=== PATIENT | female | born 1995 | race Caucasian/White ===

== ENCOUNTER 2018-01-09 22:57 | Emergency (ER) | payer BC ==
[~2018-01-09] VITALS: Ht 170.2 cm; Wt 79.5 kg
[2018-01-09 23:17] VITALS: TEMP 98
[2018-01-10 01:04] LABS: MUCOUS Present /lpf; PH 7 (5-8); URINE APPEARANCE Cloudy; URINE BACTERIA None Seen /hpf; URINE BILIRUBIN Negative (NEGATIVE); URINE BLOOD Negative (NEGATIVE); URINE COLOR Yellow; URINE GLUCOSE Negative (NEGATIVE); URINE KETONE Negative (NEGATIVE); URINE LEUKOCYTE ESTERASE 1+ (NEGATIVE); URINE NITRATE Negative (NEGATIVE); URINE PROTEIN(semi-quant) Negative (NEGATIVE); URINE UROBILINOGEN Negative (NEGATIVE)
[2018-01-10] MEDS ORDERED: CEPHALEXIN500 M1 PO (01:37)
[2018-01-10] MEDS ORDERED: ZOFRAN ODT4 MG PO (01:39)
[2018-01-10 01:56] VITALS: BP 118/78; PULSE 80
[2018-01-10 03:58] LABS: COLLECTION METHOD CLEAN CATCH
== END 2018-01-10 01:56 | disposition home or self-care (01) ==
LOC: COL.ER 22:57
PROVIDERS: Emergency Medicine
DX: N39.0 Urinary tract infection, site not specified (principal); R53.81 Other malaise; R53.83 Other fatigue
CPT/HCPCS: J1885

== ENCOUNTER 2018-08-18 23:24 | Emergency (ER) | payer BC ==
[~2018-08-18] VITALS: Ht 167.6 cm; Wt 79.5 kg
[~2018-08-18 23:24] MED LIST: CEPHALEXIN500 M1 PO; ZOFRAN ODT4 MG PO
[2018-08-18 23:32] VITALS: BP 115/94; TEMP 98.7
[2018-08-18 23:53] LABS: BASO % 0.5 % (0.0-2.0); EOS # 0.1 (0.0-0.7); EOS % 1.3 % (0-4.0); GRAN # 4.5 (1.4-6.5); GRAN % 58.3 % (42.2-75.2); HEMATOCRIT 40.6 % (37.0-47.0); HEMOGLOBIN 13.4 g/dl (12.5-16.0); LYMPH # 2.4 (1.2-3.4); MEAN CELL VOLUME 88 fl (80.0-100.0); MEAN CORPUSCULAR HEMOGLOBIN 29 pg (27.0-31.0); MEAN CORPUSCULAR HGB CONC 33 g/dl (33.0-37.0); MEAN PLATELET VOLUME 10.1 fl (7.4-10.4); MONO # 0.7 (0.1-0.6); MONO % 8.6 % (1.7-9.3); PLATELET COUNT 233 K/mm3 (130-400); RED BLOOD COUNT 4.62 M/mm3 (4.10-5.30); REDCELL DISTRIBUTION WIDTH-CV 12.5 % (11.5-14.5)
[2018-08-19 00:10] LABS: ALANINE AMINOTRANSFERASE 42 U/L (9-52); ALBUMIN 4.2 gm/dL (3.5-5.0); ALKALINE PHOSPHATASE 52 U/L (50-136); ANION GAP 10 mmol/L (7-16); AST,SGOT 26 U/L (15-37); BILIRUBIN,TOTAL 0.5 mg/dL (0.0-1.0); BLOOD UREA NITROGEN 6 mg/dL (7-17); CALCIUM 9.2 mg/dL (8.4-10.2); CARBON DIOXIDE 23 mmol/L (22-30); CHLORIDE 105 mmol/L (98-107); CREATININE, serum 0.59 (0.52-1.25); GLUCOSE 82 mg/dL (74-106); LIPASE 41 U/L (23-300); POTASSIUM 3.7 mmol/L (3.4-5.0); SODIUM 138 mmol/L (137-145); TOTAL PROTEIN 7.4 gm/dL (6.4-8.2)
[2018-08-19 00:11] LABS: C-REACTIVE PROTEIN < 0.5 mg/dL (0.0-0.9)
[2018-08-19 01:14] LABS: COLLECTION METHOD CLEAN CATCH
[2018-08-19 01:20] LABS: MUCOUS Present /lpf; PH 5 (5-8); URINE APPEARANCE Cloudy; URINE BACTERIA Rare /hpf; URINE BILIRUBIN Negative (NEGATIVE); URINE BLOOD 2+ (NEGATIVE); URINE COLOR Amber; URINE GLUCOSE Negative (NEGATIVE); URINE KETONE Trace (NEGATIVE); URINE LEUKOCYTE ESTERASE Trace (NEGATIVE); URINE NITRATE Negative (NEGATIVE); URINE PROTEIN(semi-quant) 1+ (NEGATIVE); URINE UROBILINOGEN Negative (NEGATIVE)
[2018-08-19] MEDS ORDERED: MACROBID 1100 MG/CAP PO (01:36)
[2018-08-19 01:47] VITALS: PULSE 61
== END 2018-08-19 01:47 | disposition home or self-care (01) ==
LOC: COL.ER 23:24
PROVIDERS: Physician Assistant
DX: N39.0 Urinary tract infection, site not specified (principal); Z33.1 Pregnant state, incidental
CPT/HCPCS: J1885

== ENCOUNTER 2018-09-11 17:41 | Emergency (ER) | payer BC ==
[~2018-09-11] VITALS: Ht 170.2 cm; Wt 81.8 kg
[~2018-09-11 17:41] MED LIST changes: +MACROBID 1100 MG/CAP PO
[2018-09-11 18:04] VITALS: TEMP 98.1
[2018-09-11] MEDS ORDERED: B 6 (18:07)
[2018-09-11] MEDS ORDERED: PRENATAL MVI (18:07)
[2018-09-11 19:09] LABS: COLLECTION METHOD CLEAN CATCH
[2018-09-11 19:12] LABS: BASO # 0.1 (0.0-0.2); BASO % 0.6 % (0.0-2.0); EOS % 0.3 % (0-4.0); GRAN # 6.9 (1.4-6.5); GRAN % 68.4 % (42.2-75.2); HEMOGLOBIN 14.5 g/dl (12.5-16.0); LYMPH # 2.3 (1.2-3.4); LYMPH % 22.8 % (20.0-51.0); MEAN CELL VOLUME 89 fl (80.0-100.0); MEAN CORPUSCULAR HEMOGLOBIN 29 pg (27.0-31.0); MEAN CORPUSCULAR HGB CONC 33 g/dl (33.0-37.0); MEAN PLATELET VOLUME 10.4 fl (7.4-10.4); MONO # 0.8 (0.1-0.6); MONO % 7.6 % (1.7-9.3); PLATELET COUNT 265 K/mm3 (130-400); RED BLOOD COUNT 4.97 M/mm3 (4.10-5.30)
[2018-09-11 19:30] LABS: MUCOUS Present /lpf; PH 5 (5-8); SQUAMOUS EPITHELIAL 0-2 /hpf; URINE APPEARANCE Cloudy; URINE BACTERIA None Seen /hpf; URINE BILIRUBIN Negative (NEGATIVE); URINE BLOOD 3+ (NEGATIVE); URINE COLOR Amber; URINE GLUCOSE Negative (NEGATIVE); URINE KETONE 2+ (NEGATIVE); URINE LEUKOCYTE ESTERASE Negative (NEGATIVE); URINE NITRATE Negative (NEGATIVE); URINE PROTEIN(semi-quant) 2+ (NEGATIVE); URINE RBC >50 /hpf; URINE UROBILINOGEN >=4.0 mg/dL (NEGATIVE)
[2018-09-11] MEDS ORDERED: PHENERGAN 25 TA25 MG PO (22:15)
[2018-09-11 22:28] VITALS: BP 115/77; PULSE 70
== END 2018-09-11 22:30 | disposition home or self-care (01) ==
LOC: COL.ER 17:41
PROVIDERS: Nurse Practitioner
DX: O46.001 Antepartum hemorrhage with coagulation defect, unspecified, first trimester (principal); O99.321 Drug use complicating pregnancy, first trimester; F12.90 Cannabis use, unspecified, uncomplicated; Z90.49 Acquired absence of other specified parts of digestive tract; Z3A.10 10 weeks gestation of pregnancy
CPT/HCPCS: J2550; J7030

== ENCOUNTER 2019-03-05 06:57 | Emergency (ER) | payer MEDICAID ==
[~2019-03-05] VITALS: Ht 170.2 cm; Wt 77.3 kg
[~2019-03-05 06:57] MED LIST changes: +B 6; +MOTRIN 800800 MG/TAB PO; +PHENERGAN 25 TA25 MG PO; +PRENATAL MVI; +TYLENOL 500MG500 MG PO
[2019-03-05 07:05] VITALS: TEMP 97.1
[2019-03-05 07:41] LABS: COLLECTION METHOD CLEAN CATCH
[2019-03-05 07:49] LABS: BASO # 0.1 (0.0-0.2); BASO % 0.5 % (0.0-2.0); EOS % 0.2 % (0-4.0); GRAN % 73.9 % (42.2-75.2); HEMATOCRIT 38.9 % (37.0-47.0); HEMOGLOBIN 12.6 g/dl (12.5-16.0); LYMPH # 2.1 (1.2-3.4); LYMPH % 19.5 % (20.0-51.0); MEAN CELL VOLUME 87 fl (80.0-100.0); MEAN CORPUSCULAR HEMOGLOBIN 28 pg (27.0-31.0); MEAN CORPUSCULAR HGB CONC 32 g/dl (33.0-37.0); MEAN PLATELET VOLUME 10.3 fl (7.4-10.4); MONO # 0.6 (0.1-0.6); MONO % 5.5 % (1.7-9.3); PLATELET COUNT 259 K/mm3 (130-400); RED BLOOD COUNT 4.49 M/mm3 (4.10-5.30); REDCELL DISTRIBUTION WIDTH-CV 13.1 % (11.5-14.5)
[2019-03-05 07:57] LABS: MUCOUS Present /lpf; PH 9 (5-8); URINE APPEARANCE Clear; URINE BACTERIA None Seen /hpf; URINE BILIRUBIN Negative (NEGATIVE); URINE BLOOD Negative (NEGATIVE); URINE COLOR Yellow; URINE GLUCOSE Negative (NEGATIVE); URINE KETONE Negative (NEGATIVE); URINE LEUKOCYTE ESTERASE Trace (NEGATIVE); URINE NITRATE Negative (NEGATIVE); URINE PROTEIN(semi-quant) Negative (NEGATIVE); URINE RBC 0-2 /hpf; URINE UROBILINOGEN Negative (NEGATIVE)
[2019-03-05 08:03] LABS: ALANINE AMINOTRANSFERASE 47 U/L (9-52); ALBUMIN 4.7 gm/dL (3.5-5.0); ALKALINE PHOSPHATASE 59 U/L (50-136); ANION GAP 12 mmol/L (7-16); AST,SGOT 33 U/L (15-37); BILIRUBIN,TOTAL 0.3 mg/dL (0.0-1.0); BLOOD UREA NITROGEN 12 mg/dL (7-17); CALCIUM 9.6 mg/dL (8.4-10.2); CARBON DIOXIDE 24 mmol/L (22-30); CHLORIDE 105 mmol/L (98-107); GLUCOSE 115 mg/dL (74-106); LIPASE 92 U/L (23-300); POTASSIUM 4.2 mmol/L (3.4-5.0); SODIUM 141 mmol/L (137-145); TOTAL PROTEIN 7.8 gm/dL (6.4-8.2)
[2019-03-05 08:08] LABS: C-REACTIVE PROTEIN < 0.5 mg/dL (0.0-0.9)
[2019-03-05] MEDS ORDERED: PHENERGAN 25 TA25 MG PO (09:03)
[2019-03-05 10:04] VITALS: BP 100/66; PULSE 68
== END 2019-03-05 10:07 | disposition home or self-care (01) ==
LOC: COL.ER 06:57
PROVIDERS: Emergency Medicine
DX: R11.10 Vomiting, unspecified (principal); R19.7 Diarrhea, unspecified
CPT/HCPCS: J1170; J2550; J7030

== ENCOUNTER 2019-03-17 07:01 | Emergency (ER) | payer MEDICAID ==
[~2019-03-17] VITALS: Ht 170.2 cm; Wt 77.3 kg
[2019-03-17 07:14] VITALS: BP 126/76; TEMP 97.5
[2019-03-17 08:02] LABS: COLLECTION METHOD CLEAN CATCH
[2019-03-17 08:04] LABS: BASO # 0.1 (0.0-0.2); BASO % 0.7 % (0.0-2.0); EOS # 0.1 (0.0-0.7); EOS % 1.6 % (0-4.0); GRAN # 3.5 (1.4-6.5); GRAN % 52.1 % (42.2-75.2); HEMATOCRIT 37.9 % (37.0-47.0); HEMOGLOBIN 12.1 g/dl (12.5-16.0); LYMPH # 2.6 (1.2-3.4); LYMPH % 38.3 % (20.0-51.0); MEAN CELL VOLUME 87 fl (80.0-100.0); MEAN CORPUSCULAR HEMOGLOBIN 28 pg (27.0-31.0); MEAN CORPUSCULAR HGB CONC 32 g/dl (33.0-37.0); MEAN PLATELET VOLUME 10.3 fl (7.4-10.4); MONO # 0.5 (0.1-0.6); PLATELET COUNT 236 K/mm3 (130-400); RED BLOOD COUNT 4.38 M/mm3 (4.10-5.30)
[2019-03-17 08:11] LABS: MUCOUS Present /lpf; PH 5 (5-8); URINE APPEARANCE Cloudy; URINE BACTERIA Rare /hpf; URINE BILIRUBIN Negative (NEGATIVE); URINE BLOOD Negative (NEGATIVE); URINE COLOR Yellow; URINE GLUCOSE Negative (NEGATIVE); URINE KETONE Negative (NEGATIVE); URINE LEUKOCYTE ESTERASE Trace (NEGATIVE); URINE NITRATE Negative (NEGATIVE); URINE PROTEIN(semi-quant) Negative (NEGATIVE); URINE RBC 0-2 /hpf; URINE UROBILINOGEN Negative (NEGATIVE)
[2019-03-17] MEDS ORDERED: PRILOSEC 20MG20 MG PO (08:17)
[2019-03-17 08:18] LABS: ALANINE AMINOTRANSFERASE 64 U/L (9-52); ALBUMIN 4.1 gm/dL (3.5-5.0); ALKALINE PHOSPHATASE 58 U/L (50-136); ANION GAP 10 mmol/L (7-16); AST,SGOT 66 U/L (15-37); BILIRUBIN,TOTAL 0.3 mg/dL (0.0-1.0); BLOOD UREA NITROGEN 15 mg/dL (7-17); CALCIUM 8.6 mg/dL (8.4-10.2); CARBON DIOXIDE 25 mmol/L (22-30); CHLORIDE 107 mmol/L (98-107); CREATININE, serum 0.78 (0.52-1.25); GLUCOSE 102 mg/dL (74-106); LIPASE 67 U/L (23-300); POTASSIUM 3.9 mmol/L (3.4-5.0); SODIUM 142 mmol/L (137-145); TOTAL PROTEIN 7.1 gm/dL (6.4-8.2)
[2019-03-17 08:21] LABS: C-REACTIVE PROTEIN < 0.5 mg/dL (0.0-0.9)
[2019-03-17 08:59] VITALS: PULSE 66
== END 2019-03-17 09:05 | disposition home or self-care (01) ==
LOC: COL.ER 07:01
PROVIDERS: Family Medicine
DX: R10.13 Epigastric pain (principal)
CPT/HCPCS: C9113; J2405; J7030

== ENCOUNTER → 2019-03-23 | Outpatient (CLI) | payer MEDICAID ==
[~2019-03-23] MED LIST changes: +PRILOSEC 20MG20 MG PO
== END ==
LOC: COL.RAD 09:09
DX: K80.20 Calculus of gallbladder without cholecystitis without obstruction (principal); K29.70 Gastritis, unspecified, without bleeding; R79.89 Other specified abnormal findings of blood chemistry

== ENCOUNTER 2019-05-15 06:32 | Day surgery (SDC) | payer MEDICAID ==
[~2019-05-15] VITALS: Ht 167.6 cm; Wt 81.2 kg
[2019-05-15 06:54] VITALS: BP 109/68; PULSE 71; TEMP 97.6
[2019-05-15] MEDS ORDERED: CBD GUMMIES PO (06:54)
[2019-05-15] MEDS ORDERED: NORCO 325 MG-51 TAB PO (08:13)
[2019-05-15 09:00] VITALS: BP 112/60; PULSE 76; TEMP 97.9
--- NOTE | 2019-05-15 09:00 | NUR ---
The patient arrived back to [facility] from the recovery room at this time. The patient appears alert and oriented and denies any pain or nausea at this time. Post operative vital signs were started at this time. The patient has three bandaids to her abdomen that appear clean, dry and intact. Call light is within reach. The patient does not have anyone here at this time but will text her boyfriend when she is ready to be discharged home.
[2019-05-15 09:15] VITALS: BP 111/71; PULSE 67
--- NOTE | 2019-05-15 09:15 | NUR ---
The patient has tried some juice but reports feeling "slightly nauseated" and was encouraged to try some ice water instead along with some crackers. She agreed to water and stalin crackers. Will continue to monitor the patient.
[2019-05-15 09:30] VITALS: BP 121/75; PULSE 68
--- NOTE | 2019-05-15 09:30 | NUR ---
The patient appears to be tolerating the water and crackers well. The patient continues to report minimal pain and nausea at this time. Will continue to monitor the patient.
[2019-05-15 09:45] VITALS: BP 109/68; PULSE 68
--- NOTE | 2019-05-15 09:45 | NUR ---
The patient was given a dose of [place] one tab and Zofran 4 mg IV at this time. The patient request to go to the bathroom and was escorted with the stand by assistance of one nurse and appeared to tolerate the activity well. The patient voided without difficulty and voices a desire to be discharged home.
--- NOTE | 2019-05-15 09:55 | NUR ---
Discharge instructions were reviewed with the patient at this time. She verbalized understanding and has no questions for the nurse at this time. The patient's IV to her right hand was removed and a pressure dressing was applied to the site. The patient is dressed and ready to be escorted out.
--- NOTE | 2019-05-15 10:05 | NUR ---
The patient was escorted out via wheelchair to a private vehicle by JON Wagner. The patient's belongings and discharge paperwork were sent with her. The patient's boyfriend is present to drive her home.
== END 2019-05-15 10:05 | disposition home or self-care (01) ==
LOC: SDCO 06:32
DX: K80.10 Calculus of gallbladder with chronic cholecystitis without obstruction (principal); Z79.899 Other long term (current) drug therapy
CPT/HCPCS: J0690; J1100; J1885; J2250; J2405; J2704; J3010; J7120; Q9967